=== PATIENT | female | born 1970 | race Hispanic/Latino ===

== ENCOUNTER 2022-12-16 12:20 | Inpatient (IN) | payer OTHER, MEDICAID ==
[~2022-12-16] VITALS: Ht 165.1 cm; Wt 120.2 kg
[2022-12-16 13:00] VITALS: BP 136/80
[2022-12-16] MEDS ORDERED: HYDR12.54 PO (13:38)
[2022-12-16] MEDS ORDERED: ALPR0.5T8 PO (13:38)
[2022-12-16] MEDS ORDERED: LISI40TA9 PO (13:38)
[2022-12-16] MEDS ORDERED: ACETAMINOPHEN 325 MG TAB PO PRN (14:30)
[2022-12-16] MEDS ORDERED: POTASSIUM CHLORIDE 10MEQ/100ML 100 ML IV PRN (14:30)
[2022-12-16] MEDS ORDERED: POTASSIUM CHLORIDE 10% ELIXIR 20 MEQ/15 ML UDCUP PO PRN (14:30)
[2022-12-16] MEDS ORDERED: HYDRALAZINE 20MG/ML VIAL IV PRN (14:30)
[2022-12-16] MEDS ORDERED: MAGNESIUM 2GM PREMIX 50ML 50 ML IV PRN (14:30)
[2022-12-16] MEDS: MORPHINE 2 MG SYG IV PRN ×2 (14:42→22:54)
[2022-12-16 14:50] LABS: HEMATOCRIT 37.4 % (36-48); MEAN CORPUSCULAR HEMOGLOBIN 25.1 pg (27.0-33.0); MEAN CORPUSCULAR HGB CONC 31.3 g/dL (32.0-36.0); MEAN CORPUSCULAR VOLUME 80.3 fL (79-99); RED BLOOD CELL COUNT(AUTO) 4.66 MIL/uL (4.00-5.50); RED CELL DISTRIBUTION WIDTH 16.4 % (11.0-15.5); WHITE BLOOD COUNT (AUTO) 11.8 K/uL (4.8-10.8)
[2022-12-16] MEDS: LACTATED RINGERS 1000ML 1,000 ML IV SCH (14:57)
[2022-12-16 15:15] LABS: CREATININE 0.9 mg/dL (0.5-1.5); POTASSIUM 4.2 mmol/L (3.5-5.1)
[2022-12-16 15:16] LABS: INR 0.96 (0.85-1.15); PROTHROMBIN TIME 10.5 SEC (9.6-11.6)
[2022-12-16 15:17] LABS: PARTIAL THROMBOPLASTIN TIME 29.5 SEC (26.3-35.5)
[2022-12-16 15:19] LABS: ALBUMIN 3.3 g/dL (3.5-5.0); MAGNESIUM 1.7 mg/dL (1.80-2.40); TOTAL PROTEIN, SERUM 7.4 g/dL (6.0-8.3)
[2022-12-16 16:00] VITALS: BP 140/84
[2022-12-16] MEDS ORDERED: KETOROLAC 15MG/ML VIAL (15MG/ML) IM SCH (18:00)
[2022-12-16 19:00] VITALS: BP 150/85
[2022-12-16 19:15] LABS: APPEARANCE,URINE CLEAR (CLEAR); BILIRUBIN,URINE NEGATIVE (NEGATIVE); COLOR,URINE COLORLESS (YELLOW); GLUCOSE, URINE (UA) NEGATIVE (NEGATIVE); KETONES,URINE NEGATIVE (NEGATIVE); LEUKOCYTE ESTERASE ,URINE NEGATIVE Leu/uL (NEGATIVE); NITRATE,URINE NEGATIVE (NEGATIVE); OCCULT BLOOD,URINE NEGATIVE (NEGATIVE); PH,URINE 6.5 (5.0-8.0); PROTEIN,URINE NEGATIVE (NEGATIVE); UROBILINOGEN,URINE 0.2 mg/dL (0.2-1.0)
[2022-12-16] MEDS: ALPRAZOLAM 0.5 MG TABLET PO SCH (20:08)
[2022-12-16] MEDS: HEPARIN 5,000 UNIT VIAL SQ SCH (20:08)
[2022-12-16] MEDS: ZOSYN 3.375GM+NS 50ML 50 ML IVPB SCH (20:08)
[2022-12-16 23:59] VITALS: BP 146/87
[2022-12-17] MEDS: LACTATED RINGERS 1000ML 1,000 ML IV SCH ×3 (00:04→20:57)
[2022-12-17] MEDS: ONDANSETRON 4MG INJ IV PRN ×2 (01:21→13:50)
[2022-12-17] MEDS ORDERED: KETOROLAC 15MG/ML VIAL (15MG/ML) IV ONE (01:30)
[2022-12-17] MEDS: MORPHINE 2 MG SYG IV PRN ×5 (02:56→21:15)
[2022-12-17 04:00] VITALS: BP 150/91
[2022-12-17] MEDS: ZOSYN 3.375GM+NS 50ML 50 ML IVPB SCH ×3 (04:46→20:57)
[2022-12-17 05:51] LABS: HEMATOCRIT 37.4 % (36-48); MEAN CORPUSCULAR HEMOGLOBIN 24.8 pg (27.0-33.0); MEAN CORPUSCULAR VOLUME 80.1 fL (79-99); PLATELET COUNT (AUTO) 254 K/uL (130-400); RED BLOOD CELL COUNT(AUTO) 4.67 MIL/uL (4.00-5.50); RED CELL DISTRIBUTION WIDTH 16.5 % (11.0-15.5); WHITE BLOOD COUNT (AUTO) 11.1 K/uL (4.8-10.8)
[2022-12-17 06:39] LABS: ALBUMIN 3.3 g/dL (3.5-5.0); BILIRUBIN,DIRECT 0.2 mg/dL (0.0-0.3); MAGNESIUM 1.7 mg/dL (1.80-2.40); TOTAL PROTEIN, SERUM 7.5 g/dL (6.0-8.3)
[2022-12-17 08:00] VITALS: BP 148/80
[2022-12-17] MEDS ORDERED: HYDROMORPHONE 0.5 MG SYG (0.5MG/0.5ML) IVP ONE (08:30)
[2022-12-17] MEDS: ALPRAZOLAM 0.5 MG TABLET PO SCH ×2 (08:38→19:48)
[2022-12-17] MEDS: HYDROCHLOROTHIAZIDE 25 MG TABLET PO SCH (08:38)
[2022-12-17] MEDS: LISINOPRIL 40 MG TABLET PO SCH (08:38)
[2022-12-17] MEDS: HEPARIN 5,000 UNIT VIAL SQ SCH ×3 (08:49→20:57)
[2022-12-17 12:00] VITALS: BP 141/75
[2022-12-17] MEDS: KETOROLAC 15MG/ML VIAL (15MG/ML) IV PRN ×2 (13:45→19:48)
[2022-12-17 16:00] VITALS: BP 134/75
[2022-12-17 20:00] VITALS: BP 160/80
[2022-12-18] VITALS (27 sets, daily range): BP systolic 113–194; BP diastolic 60–97
[2022-12-18] MEDS: MORPHINE 2 MG SYG IV PRN ×3 (02:20→18:04)
[2022-12-18] MEDS: ZOSYN 3.375GM+NS 50ML 50 ML IVPB SCH ×3 (05:01→19:40)
[2022-12-18] MEDS: KETOROLAC 15MG/ML VIAL (15MG/ML) IV PRN ×2 (05:04→19:39)
[2022-12-18] MEDS: LACTATED RINGERS 1000ML 1,000 ML IV SCH ×2 (06:23→19:40)
[2022-12-18 08:41] LABS: BASOPHILS % (AUTO) 0.5 % (0.0-5.0); EOSINOPHILS % (AUTO) 1.8 % (0.0-8.0); HEMATOCRIT 36.7 % (36-48); LYMPHOCYTES % (AUTO) 12.6 % (21.0-51.0); MEAN CORPUSCULAR HEMOGLOBIN 25.2 pg (27.0-33.0); MEAN CORPUSCULAR HGB CONC 30.8 g/dL (32.0-36.0); MEAN CORPUSCULAR VOLUME 81.9 fL (79-99); MONOCYTES % (AUTO) 10.4 % (3.0-13.0); NEUTROPHILS % (AUTO) 73.5 % (40.0-77.0); PLATELET COUNT (AUTO) 229 K/uL (130-400); RED BLOOD CELL COUNT(AUTO) 4.48 MIL/uL (4.00-5.50); RED CELL DISTRIBUTION WIDTH 16.5 % (11.0-15.5); WHITE BLOOD COUNT (AUTO) 13.6 K/uL (4.8-10.8)
[2022-12-18 08:59] LABS: ALBUMIN 2.8 g/dL (3.5-5.0); CREATININE 0.8 mg/dL (0.5-1.5); MAGNESIUM 1.8 mg/dL (1.80-2.40); POTASSIUM 3.2 mmol/L (3.5-5.1); TOTAL PROTEIN, SERUM 7.1 g/dL (6.0-8.3)
[2022-12-18] MEDS: LISINOPRIL 40 MG TABLET PO SCH ×2 (09:00→14:21)
[2022-12-18] MEDS: HEPARIN 5,000 UNIT VIAL SQ SCH ×3 (09:00→19:52)
[2022-12-18] MEDS: HYDROCHLOROTHIAZIDE 25 MG TABLET PO SCH ×2 (09:00→14:20)
[2022-12-18] MEDS: ALPRAZOLAM 0.5 MG TABLET PO SCH ×2 (09:00→19:40)
[2022-12-18] MEDS ORDERED: LIDOCAINE 1%-EPI 1:100,000 20 ML VIAL IJ ONE (10:43)
[2022-12-18] MEDS ORDERED: BUPIVACAINE/PF 0.5% 10ML VIAL ONE (10:43)
[2022-12-18] MEDS ORDERED: LIDOCAINE PF 100MG/5ML (2%) SYRINGE 5ML ONE (11:02)
[2022-12-18] MEDS ORDERED: PROPOFOL 10 MG/ML 20ML VIAL IV ONE (11:02)
[2022-12-18] MEDS ORDERED: GLYCOPYRROLATE 1 MG/5 ML SYRINGE ONE (11:02)
[2022-12-18] MEDS ORDERED: FENTANYL CITRATE PF 50 MCG/1 ML 2ML VIAL ONE ×3 (11:03→13:35)
[2022-12-18] MEDS ORDERED: ROCURONIUM 10MG/1ML SYR 10 MG/ML ML ONE (11:09)
[2022-12-18] MEDS ORDERED: MIDAZOLAM HCL 1 MG/ML 2ML VIAL ONE (11:49)
[2022-12-18] MEDS ORDERED: INDOCYANINE GREEN 25 MG VIAL IJ ONE (11:51)
[2022-12-18] MEDS ORDERED: BUPIVACAINE/PF 0.5% 30ML VIAL INJ ONE (12:09)
[2022-12-18] MEDS ORDERED: ONDANSETRON 4MG INJ ONE (12:29)
[2022-12-18] MEDS ORDERED: NEOSTIGMINE 5MG/5ML SYR IV ONE (13:05)
[2022-12-18] MEDS ORDERED: HYDROMORPHONE 1 MG INJ ONE (13:55)
[2022-12-18] MEDS: KCL 20 MEQ ERTAB PO PRN ×3 (19:40→23:59)
[2022-12-19] VITALS: BP 101/67
[2022-12-19] MEDS: LACTATED RINGERS 1000ML 1,000 ML IV SCH ×3 (02:02→12:30)
[2022-12-19 03:59] VITALS: BP 112/55
[2022-12-19] MEDS: ZOSYN 3.375GM+NS 50ML 50 ML IVPB SCH ×2 (04:25→14:20)
[2022-12-19 05:35] LABS: BASOPHILS % (AUTO) 0.3 % (0.0-5.0); EOSINOPHILS % (AUTO) 2.1 % (0.0-8.0); HEMATOCRIT 34.5 % (36-48); LYMPHOCYTES % (AUTO) 12.5 % (21.0-51.0); MEAN CORPUSCULAR HEMOGLOBIN 25.4 pg (27.0-33.0); MEAN CORPUSCULAR HGB CONC 30.7 g/dL (32.0-36.0); MEAN CORPUSCULAR VOLUME 82.7 fL (79-99); NEUTROPHILS % (AUTO) 73.8 % (40.0-77.0); PLATELET COUNT (AUTO) 213 K/uL (130-400); RED BLOOD CELL COUNT(AUTO) 4.17 MIL/uL (4.00-5.50); RED CELL DISTRIBUTION WIDTH 16.9 % (11.0-15.5); WHITE BLOOD COUNT (AUTO) 11.5 K/uL (4.8-10.8)
[2022-12-19 05:54] LABS: ALBUMIN 2.6 g/dL (3.5-5.0); CREATININE 0.8 mg/dL (0.5-1.5); MAGNESIUM 2.2 mg/dL (1.80-2.40); POTASSIUM 3.6 mmol/L (3.5-5.1); TOTAL PROTEIN, SERUM 6.9 g/dL (6.0-8.3)
[2022-12-19] MEDS: KCL 20 MEQ ERTAB PO PRN ×2 (06:44→08:51)
[2022-12-19 08:38] VITALS: BP 119/68
[2022-12-19] MEDS: HEPARIN 5,000 UNIT VIAL SQ SCH ×2 (08:39→14:24)
[2022-12-19] MEDS: ALPRAZOLAM 0.5 MG TABLET PO SCH (08:41)
[2022-12-19] MEDS: HYDROCHLOROTHIAZIDE 25 MG TABLET PO SCH (08:42)
[2022-12-19] MEDS: LISINOPRIL 40 MG TABLET PO SCH (08:42)
[2022-12-19] MEDS: KETOROLAC 15MG/ML VIAL (15MG/ML) IV PRN ×2 (08:57→16:36)
[2022-12-19] MEDS ORDERED: LACT1CAP65 PO (11:15)
[2022-12-19 12:22] VITALS: BP 110/63
[2022-12-19 16:29] VITALS: BP 139/71
== END 2022-12-19 18:57 | disposition home or self-care (01) | DRG 418 ==
LOC: 3CH 13:00
PROVIDERS: ADMIT Internal Medicine; ATTEND Internal Medicine
PROC: 8E0W4CZ Robotic Assisted Procedure of Trunk Region, Percutaneous Endoscopic Approach (ICD-10-PCS; 2022-12-18)
PROC: 0FT44ZZ Resection of Gallbladder, Percutaneous Endoscopic Approach (ICD-10-PCS; principal; 2022-12-18 12:04)
DX: K80.12 Calculus of gallbladder with acute and chronic cholecystitis without obstruction (principal); E44.0 Moderate protein-calorie malnutrition; Z68.41 Body mass index [BMI] 40.0-44.9, adult; R16.0 Hepatomegaly, not elsewhere classified; Z20.822 Contact with and (suspected) exposure to COVID-19; K76.0 Fatty (change of) liver, not elsewhere classified; I10 Essential (primary) hypertension; F41.9 Anxiety disorder, unspecified; E66.01 Morbid (severe) obesity due to excess calories; Z82.49 Family history of ischemic heart disease and other diseases of the circulatory system; Z85.42 Personal history of malignant neoplasm of other parts of uterus; Z90.710 Acquired absence of both cervix and uterus; Z98.51 Tubal ligation status; Z79.899 Other long term (current) drug therapy
CPT/HCPCS: 36415; 80053; 80061; 80076; 81001; 81003; 82150; 83605; 83690; 83735; 85025; 85027; 85610; 85730; 87635; 93005; G0378; J1170; J1644; J1885; J2001; J2250; J2405; J2543; J2704; J2710; J3010; J3475; J3490